=== PATIENT | male | born 1985 | race Caucasian/White ===

== ENCOUNTER 2023-07-08 19:28 | Inpatient (IN) | payer MEDICARE, OTHER ==
[~2023-07-08] VITALS: Ht 180.3 cm; Wt 61.4 kg
[2023-07-08 21:20] LABS: BASOPHILS % (AUTO) 0.4 % (0.0-2.0); EOSINOPHILS % (AUTO) 0.3 % (1.0-6.0); HEMATOCRIT 43.5 % (41-53); HEMOGLOBIN 14.7 g/dL (13.5-17.5); LYMPHOCYTES # (AUTO) 1.5 K/uL (1.0-4.8); MEAN CORPUSCULAR HEMOGLOBIN 31.5 pg (26.0-34.0); MEAN CORPUSCULAR HGB CONC 33.8 G/dL (31.0-37.0); MEAN CORPUSCULAR VOLUME 93 fL (80-100); MONOCYTES # (AUTO) 0.8 K/uL (0.1-1.0); MONOCYTES % (AUTO) 5.1 % (2.0-9.0); NEUTROPHILS # (AUTO) 12.8 K/uL (1.8-7.7); NEUTROPHILS % (AUTO) 84.2 % (40.0-70.0); PLATELET COUNT (AUTO) 243 K/uL (150-450); RED BLOOD CELL COUNT(AUTO) 4.67 MIL/uL (4.50-5.90); RED CELL DISTRIBUTION WIDTH 13.6 % (11.5-14.5); WHITE BLOOD COUNT (AUTO) 15.2 K/uL (4.5-11.0)
[2023-07-08 21:27] LABS: ANION GAP 11 mmol/L (8-16); CALCIUM, TOTAL 8.9 mg/dL (8.8-10.5); CARBON DIOXIDE 26 mmol/L (22-29); CHLORIDE 104 mmol/L (98-107); CREATININE 1.03 mg/dL (0.60-1.30); GLOMERULAR FILTR. RATE CALC > 60 mL/min (>60); GLUCOSE,RANDOM 116 mg/dL (70-110); POTASSIUM 3.8 mmol/L (3.5-5.1); SODIUM SERUM 141 mmol/L (136-145); UREA NITROGEN, BLOOD 20 mg/dL (7-18)
[2023-07-08 21:33] LABS: ALANINE AMINOTRANSFERASE 24 U/L (12-78); ALBUMIN 4.2 g/dL (3.4-5.0); ALKALINE PHOSPHATASE 71 U/L (46-116); ASPARTATE AMINOTRANSFERASE 20 U/L (15-37); BILIRUBIN,TOTAL 0.3 mg/dL (0.1-1.0); TOTAL PROTEIN, SERUM 7.4 g/dL (6.4-8.2)
[2023-07-08] MEDS ORDERED: LORazepam 2 MG TABLET PO PRN (22:00)
[2023-07-08] MEDS ORDERED: HALOPERIDOL 5 MG TABLET PO PRN (22:00)
[2023-07-08] MEDS ORDERED: ZOLPIDEM TARTRATE 10 MG TABLET PO PRN (22:00)
[2023-07-08 22:08] LABS: ALCOHOL, BLOOD (SERUM) < 3 mg/dL (0-10)
[2023-07-08 22:46] LABS: COVID AG,FIA SOURCE NASAL SWAB
[2023-07-08 23:24] LABS: SARS-COV2 (COVID) ANTIGEN,FIA Positive (Negative)
[2023-07-08] MEDS ORDERED: ACETAMINOPHEN 325 MG TABLET PO PRN (23:45)
[2023-07-08] MEDS ORDERED: BENZONATATE 100 MG CAPSULE PO PRN (23:45)
[2023-07-08] MEDS ORDERED: MAGNESIUM HYDROXIDE SUSPENSION 30 ML UDCUP PO PRN (23:45)
[2023-07-08] MEDS ORDERED: IPRATROPIUM BROMIDE 0.5 MG/2.5 ML NEB SOLUTION NEB PRN (23:45)
[2023-07-09] MEDS: HEPARIN SODIUM,PORCINE 5,000 UNITS/ML VIAL SQ SCH ×4 (08:00→23:42)
[2023-07-09 08:22] VITALS: BP 108/73; PULSE 80; RESP 20; TEMP 97.8
[2023-07-09] MEDS: FAMOTIDINE 20 MG TABLET PO SCH (12:37)
[2023-07-09 13:41] LABS: PH,URINE DRUG SCREEN 7.5 (5.0-8.0)
[2023-07-09 13:50] LABS: AMPHET/METH SCREEN,URINE NEGATIVE (NEGATIVE); BARBITURATE SCREEN, URINE NEGATIVE (NEGATIVE); BENZODIAZEPINES SCREEN,URINE NEGATIVE (NEGATIVE); CANNABINOID SCREEN,URINE POSITIVE (NEGATIVE); COCAINE SCREEN,URINE NEGATIVE (NEGATIVE); METHADONE SCREEN, URINE NEGATIVE (NEGATIVE); OPIATE SCREEN,URINE NEGATIVE (NEGATIVE); PHENCYCLIDINE SCREEN,URINE NEGATIVE (NEGATIVE)
[2023-07-09 13:51] LABS: ALCOHOL, URINE DRUG SCREEN NEGATIVE (NEGATIVE)
[2023-07-09 15:02] VITALS: BP 122/76; PULSE 86; RESP 0; TEMP 98.4
[2023-07-09 19:34] VITALS: BP 133/75; PULSE 75; RESP 20; TEMP 97.4
[2023-07-10 04:45] VITALS: BP 134/86; PULSE 87; RESP 20; TEMP 97.8
[2023-07-10 07:21] VITALS: BP 128/82; PULSE 80; RESP 19; TEMP 98
[2023-07-10] MEDS: FAMOTIDINE 20 MG TABLET PO SCH (08:17)
[2023-07-10] MEDS: HEPARIN SODIUM,PORCINE 5,000 UNITS/ML VIAL SQ SCH ×2 (08:17→16:27)
[2023-07-10] MEDS ORDERED: TraZODone HCL 50 MG TABLET PO PRN (10:00)
[2023-07-10] MEDS: RisperiDONE 1 MG TABLET PO SCH ×2 (10:47→20:31)
[2023-07-10 12:00] VITALS: BP 130/78; PULSE 82; RESP 20; TEMP 98.2
[2023-07-10 15:00] VITALS: BP 132/78; PULSE 86; RESP 18; TEMP 98
[2023-07-10 19:15] VITALS: BP 117/71; PULSE 57; RESP 18; TEMP 97.7
[2023-07-11] MEDS: HEPARIN SODIUM,PORCINE 5,000 UNITS/ML VIAL SQ SCH ×3 (00:26→17:17)
[2023-07-11 05:30] VITALS: BP 113/70; PULSE 65; RESP 18; TEMP 98.3
[2023-07-11 08:29] VITALS: BP 118/77; PULSE 81; RESP 19; TEMP 97.9
[2023-07-11] MEDS: FAMOTIDINE 20 MG TABLET PO SCH (08:38)
[2023-07-11] MEDS: RisperiDONE 1 MG TABLET PO SCH (08:38)
[2023-07-11 19:50] VITALS: BP 112/67; PULSE 87; RESP 20; TEMP 97.5
[2023-07-12] MEDS: RisperiDONE 1 MG TABLET PO SCH ×2 (00:46→08:51)
[2023-07-12 04:25] VITALS: BP 123/69; PULSE 60; RESP 20; TEMP 98.2
[2023-07-12 08:11] VITALS: BP 115/82; PULSE 66; RESP 20; TEMP 98.2
[2023-07-12] MEDS: HEPARIN SODIUM,PORCINE 5,000 UNITS/ML VIAL SQ SCH ×2 (08:51)
[2023-07-12] MEDS: FAMOTIDINE 20 MG TABLET PO SCH (08:51)
[2023-07-12] MEDS ORDERED: RISP1TAB98 PO (10:38)
[2023-07-12] MEDS ORDERED: TRAZ-252 PO (10:38)
== END 2023-07-12 11:40 | disposition home or self-care (01) | DRG 179 ==
LOC: EMS 19:30 → 6S 07-09 05:00
PROVIDERS: ADMIT Internal Medicine; ATTEND Internal Medicine
DX: U07.1 COVID-19 (principal); D72.829 Elevated white blood cell count, unspecified; F20.9 Schizophrenia, unspecified
CPT/HCPCS: 80053; 80307; 85025; 99285; G0480; J1644